=== PATIENT | male | born 1960 | race Caucasian/White ===

== ENCOUNTER 2022-08-03 07:28 | Day surgery (SDC) | payer OTHER ==
[2022-08-03] MEDS: Lactated Ringers 1,000 ML IV SCH (07:53)
[2022-08-03] MEDS ORDERED: fentaNYL 100 MCG/2 ML SDV ONE (09:34)
[2022-08-03] MEDS ORDERED: Propofol 200 MG/20 ML SDV ONE ×2 (09:34→09:57)
== END 2022-08-03 11:30 | disposition home or self-care (01) ==
LOC: VM.SDS 07:28
PROVIDERS: ATTEND Student in an Organized Health Care Education/Training Program
DX: Z12.11 Encounter for screening for malignant neoplasm of colon (principal); D12.2 Benign neoplasm of ascending colon; D12.3 Benign neoplasm of transverse colon; D12.4 Benign neoplasm of descending colon; K62.1 Rectal polyp; E78.00 Pure hypercholesterolemia, unspecified; E66.9 Obesity, unspecified; K57.30 Diverticulosis of large intestine without perforation or abscess without bleeding; J45.909 Unspecified asthma, uncomplicated; H61.23 Impacted cerumen, bilateral; N28.1 Cyst of kidney, acquired; M19.90 Unspecified osteoarthritis, unspecified site; J20.9 Acute bronchitis, unspecified; R55 Syncope and collapse; Z80.0 Family history of malignant neoplasm of digestive organs; Z68.34 Body mass index [BMI] 34.0-34.9, adult; Z79.899 Other long term (current) drug therapy
CPT/HCPCS: 00812; J2704; J3010; J7120